=== PATIENT | female | born 1945 | race Caucasian/White ===

== ENCOUNTER 2020-07-09 17:44 | Inpatient (IN) | payer MEDICARE, MEDICAID ==
[~2020-07-09] VITALS: Ht 157.5 cm; Wt 72.1 kg
[~2020-07-09 17:44] MED LIST: ALBU18HF2 INH; ASPI-1169 PO; CLON2TAB PO; FLUR30CA13 PO; FLUT1DIS3 INH; HYDR-3980 PO; PHEN473S12 PO; TIOT18CA3 INH
--- NOTE | 2020-07-09 17:50 | NUR ---
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 ALSO, C/O HEAD AND CHRONIC BACK PAIN. RATES PAIN 8/10. IN ROOM AIR AND DENIES SOB. RESPIRATION REGULAR AND UNLABROED. ATTACHED THE PATIENT TO THE MONITOR. WILL CONTINUE TO MONITOR THE PATIENT.
[2020-07-09] MEDS ORDERED: CLONIDINE HCL 0.1 MG TABLET PO ONE (18:30)
[2020-07-09] MEDS ORDERED: IV NS 0.9% 1,000 ML BAG IV ONE (18:30)
[2020-07-09] MEDS ORDERED: KETOROLAC TROMETHAMINE INJ 30 MG/ML VIAL IV ONE (18:30)
[2020-07-09 18:37] LABS: BASOPHILS # (AUTO) 0.1 /CMM (0.0-0.2); BASOPHILS % (AUTO) 0.8 % (0.0-2.0); BILIRUBIN,URINE Negative (NEGATIVE); COLOR,URINE YELLOW (YELLOW); HEMATOCRIT 43 % (33-45); HEMOGLOBIN 14.6 g/dL (11.5-14.8); LEUKOCYTE ESTERASE ,URINE Negative (NEGATIVE); LYMPHOCYTES % (AUTO) 24.2 % (20.0-44.0); MEAN CORPUSCULAR HGB CONC 34 g/dl (31.0-36.0); MEAN CORPUSCULAR VOLUME 88 fL (82-100); MONOCYTES # (AUTO) 0.5 /CMM (0.1-1.30); MONOCYTES % (AUTO) 5.7 % (2.0-12.0); NEUTROPHILS # (AUTO) 5.6 /CMM (1.8-8.9); NEUTROPHILS % (AUTO) 67.3 % (43.0-81.0); NITRITE, URINE Negative (NEGATIVE); PLATELET COUNT (AUTO) 255 /CMM (150-450); PROTEIN,URINE 30 mg/dl (NEGATIVE); UGLUCOSE Negative (NEGATIVE); UROBILINOGEN,URINE 0.2 EU/dL (0.2); WHITE BLOOD COUNT (AUTO) 8.3 K/uL (4.3-11.0)
[2020-07-09] MEDS ORDERED: CLONIDINE HCL 0.1 MG TABLET ONE (18:39)
[2020-07-09] MEDS ORDERED: KETOROLAC TROMETHAMINE 15 MG/ML VIAL ONE (18:39)
[2020-07-09 18:46] LABS: BACTERIA,URINE Rare /HPF (None Seen); SQUAMOUS EPITHELIAL CELL,UR 0-2 /HPF (None Seen); WBC,URINE 0-2 /HPF (0-3)
[2020-07-09 18:50] LABS: ALANINE AMINOTRANSFERASE 29 U/L (12-78); ALBUMIN 3.8 g/dL (3.4-5.0); ALKALINE PHOSPHATASE 78 U/L (46-116); ASPARTATE AMINOTRANSFERASE 21 U/L (15-37); BILIRUBIN,DIRECT 0.1 mg/dL (0.0-0.2); BILIRUBIN,TOTAL 0.4 mg/dL (0.2-1.0); CALCIUM, SERUM 9.7 mg/dL (8.5-10.1); CARBON DIOXIDE 27 mmol/L (21-32); CHLORIDE 102 mmol/L (98-107); CREATININE 0.9 mg/dL (0.6-1.3); GLUCOSE 133 mg/dL (74-106); LIPASE 49 U/L (73-393); POTASSIUM 3.9 mmol/L (3.5-5.1); SODIUM SERUM 142 mmol/L (136-145); TOTAL PROTEIN, SERUM 7.9 g/dL (6.4-8.2); UREA NITROGEN, BLOOD 21 mg/dL (7-18)
--- NOTE | 2020-07-09 18:51 | NUR ---
TAKEN TO CT
[2020-07-09] MEDS ORDERED: ONDANSETRON HCL/PF 4 MG/2 ML VIAL IV ONE (20:00)
[2020-07-09] MEDS ORDERED: ENALAPRILAT INJ (1.25 MG/ML) 1.25 MG/ML VIAL IV PRN (20:00)
[2020-07-09] MEDS ORDERED: ONDANSETRON HCL/PF 4 MG/2 ML VIAL ONE (20:14)
[2020-07-09] MEDS ORDERED: ENALAPRILAT INJ (1.25 MG/ML) 1.25 MG/ML VIAL IV ONE (20:15)
--- NOTE | 2020-07-09 20:15 | NUR ---
pt placed on 1L o2 for comfort
--- NOTE | 2020-07-09 20:56 | NUR ---
DR. COUCH SPEAKING WITH DR. QUINTEROS
[2020-07-09] MEDS ORDERED: ACETAMINOPHEN 325 MG TABLET PO PRN (21:30)
[2020-07-09] MEDS ORDERED: MAGNESIUM HYDROXIDE 30 ML UDC PO PRN (21:30)
[2020-07-09] MEDS ORDERED: Z GUARD REMEDY 2 OZ OINT TP PRN (21:30)
[2020-07-09] MEDS ORDERED: CLONIDINE HCL 0.1 MG TABLET PO PRN (21:30)
[2020-07-09] MEDS ORDERED: hydrALAZINE HCL IV 20 MG VIAL IV PRN (21:30)
[2020-07-09] MEDS ORDERED: ZOLPIDEM TARTRATE 5 MG TABLET PO PRN (21:30)
--- NOTE | 2020-07-09 21:47 | NUR ---
BED ASSIGNMENT 327-1
--- NOTE | 2020-07-09 21:55 | NUR ---
GAVE REPORT TO AYO AQUINO FOR [facility]
[2020-07-09] MEDS: ENOXAPARIN SODIUM 40 MG/0.4 ML DISP.SYRIN SQ SCH ×2 (22:12→23:43)
[2020-07-09] MEDS ORDERED: METO25TA6 PO (23:06)
[2020-07-09] MEDS ORDERED: LOSA50TA39 PO (23:06)
[2020-07-09] MEDS ORDERED: ICOS1CAP2 PO (23:06)
--- NOTE | 2020-07-09 23:13 | NUR ---
MS/TELE/RN RECEIVED PATIENT FROM [facility] BY OG AT AROUND 2210. PATIENT WAS AWAKE, ALERT, ORIENTED, COMFORTABLE, NO C/O PAIN, NO DISTRESS NOTED, ADMISSION DONE PER PROTOCOL, PHYSICAL ASSESSMENT DONE, PLAN OF CARE DISCUSSED, VERBALIZED UNDERSTANDING AND AGREEMENT TO THE PLAN OF CARE. HOME MEDS DOSES AND FREQUENCIES OBTAINED AND ENTERED IN THE COMPUTER. FALL PRECAUTIONS PER PROTOCOL IMPLEMENTED, TAUGHT THE USE OF CALL LIGHT AND PLACED IT AT BEDSIDE WITHIN REACH. WILL MONITOR.
[2020-07-09] MEDS: HYDROCODONE/APAP 5/325MG TABLET PO PRN (23:42)
[2020-07-10] VITALS: BP 145/93
[2020-07-10] MEDS: MAG HYDROX/AL HYDROX/SIMETH 30 ML UDC PO PRN ×2 (00:42→06:24)
--- NOTE | 2020-07-10 00:56 | NUR ---
MS/TELE/RN C/O STOMACH PAIN/BURNING, MAALOX PO WAS GIVEN ORDERED, WILL MONITOR.
[2020-07-10] MEDS ORDERED: ALBUTEROL FS 2.5 MG/3 ML VIAL.NEB NEB PRN (01:30)
--- NOTE | 2020-07-10 02:04 | NUR ---
MS/TELE/RN PATIENT IS SLEEPING AT THIS TIME, APPEAR COMFORTABLE, NO SIGNS OF DISTRESS NOTED, CALL LIGHT IN REACH, WILL CONTINUE TO MONITOR.
[2020-07-10] MEDS: HYDROCODONE/APAP 5/325MG TABLET PO PRN ×3 (04:17→21:16)
[2020-07-10 04:54] VITALS: BP 143/66
--- NOTE | 2020-07-10 06:06 | NUR ---
MS/TELE/RN PATIENT APPEAR SLEEPING AT THIS TIME, APPEAR COMFORTABLE, NO SIGNS OF DISTRESS NOTED, CALL LIGHT IN REACH, ALL NEEDS ATTENDED AT THIS TIME, WILL CONTINUE TO MONITOR.
--- NOTE | 2020-07-10 06:36 | NUR ---
MS/TELE/RN PATIENT C/O HEARTBURN, MAALOX PO WAS GIVEN ORDERED. WILL CONTINUE TO MONITOR.
[2020-07-10 06:46] LABS: BASOPHILS % (AUTO) 0.7 % (0.0-2.0); EOSINOPHILS % (AUTO) 2.4 % (0.0-6.0); HEMATOCRIT 37 % (33-45); HEMOGLOBIN 12.3 g/dL (11.5-14.8); LYMPHOCYTES # (AUTO) 2.2 /CMM (0.8-4.8); LYMPHOCYTES % (AUTO) 33.6 % (20.0-44.0); MEAN CORPUSCULAR HGB CONC 34 g/dl (31.0-36.0); MEAN CORPUSCULAR VOLUME 89 fL (82-100); MONOCYTES # (AUTO) 0.5 /CMM (0.1-1.30); MONOCYTES % (AUTO) 8.3 % (2.0-12.0); NEUTROPHILS # (AUTO) 3.6 /CMM (1.8-8.9); PLATELET COUNT (AUTO) 231 /CMM (150-450); RED BLOOD CELL COUNT(AUTO) 4.11 MIL/uL (4.0-5.2); WHITE BLOOD COUNT (AUTO) 6.5 K/uL (4.3-11.0)
[2020-07-10 06:59] LABS: CALCIUM, SERUM 8.8 mg/dL (8.5-10.1); CREATININE 0.9 mg/dL (0.6-1.3); MAGNESIUM 2.1 mg/dL (1.8-2.4); PHOSPHORUS 4.5 mg/dL (2.5-4.9); POTASSIUM 4.1 mmol/L (3.5-5.1)
[2020-07-10 07:55] LABS: THYROID STIMULATING HORMONE 0.871 uIU/mL (0.358-3.74)
[2020-07-10 08:00] VITALS: BP 143/54
[2020-07-10] MEDS: ONDANSETRON HCL/PF 4 MG/2 ML VIAL IVP PRN (08:59)
[2020-07-10] MEDS ORDERED: METOPROLOL TARTRATE 25 MG TABLET PO SCH (09:00)
[2020-07-10] MEDS: HYDROCODONE/APAP 10/325MG TABLET PO SCH ×3 (09:00→17:00)
[2020-07-10] MEDS: FLUTICASONE/VILANTEROL 1 EACH BLST.W.DEV IH SCH ×2 (09:00→11:07)
[2020-07-10] MEDS ORDERED: PROMETHAZINE HCL SYRUP 6.25 MG/5 ML UDC PO PRN ×2 (09:00)
--- NOTE | 2020-07-10 09:00 | NUR ---
DATA ADMINISTRATOR NOTES Patient alert and oriented x3. No acute distress noted. Denies pain. c/o nausea with relief from PRN IV Zofran. Assisted patient to the bathroom. Urine yellow and clear with no foul odor.
[2020-07-10] MEDS: PANTOPRAZOLE 40 MG TABLET.DR PO SCH (09:14)
[2020-07-10] MEDS: VALSARTAN 80 MG TABLET PO SCH (09:15)
[2020-07-10] MEDS: METOPROLOL TARTRATE 25 MG TABLET PO SCH ×2 (09:16→21:15)
[2020-07-10] MEDS: ASPIRIN 81 MG TAB.CHEW PO SCH (09:17)
[2020-07-10] MEDS: clonazePAM 1 MG TABLET PO PRN (12:43)
[2020-07-10] MEDS: IPRATROPIUM NEB FS 0.5 MG/2.5 ML AMPUL.NEB NEB SCH ×3 (13:31→20:05)
[2020-07-10 16:00] VITALS: BP 147/80
[2020-07-10 16:46] VITALS: BP_SYST 124; BP_SYST 142; BP_SYST 146; BP_DIAS 70; BP_DIAS 71; BP_DIAS 75
--- NOTE | 2020-07-10 18:30 | NUR ---
MS/TELE/RN NOTES Patient A&Ox4. VSS. Cooperative with using call light when walking to bathroom related to mild dizziness. C/o lower back pain with relief from PRN [place]. All other needs met by staff.
[2020-07-10 20:00] VITALS: BP 148/65
--- NOTE | 2020-07-10 20:00 | NUR ---
HEALTH SCREENER OPENING NOTE RECEIVED PT AWAKE IN BED. A/O X4. PT NOTED ON 2L O2 VIA NC. NO SOB NOTED. NO S/S OF RESPIRATORY DISTRESS. PT IS ON EXTERNAL TELE SHOP MECHANIC READING SR 72. NO CO/O PAIN AT THIS TIME. IV ACCESS IN RAC #18G S/L. IV IS INTACT, PATENT, AND FLUSHING WELL. SAFETY MEASURES MAINTAINED AT ALL TIMES. BED IN LOWEST LOCKED POSITION. SIDE RAILS UP X2. CALL LIGHT AND TABLE WITHIN REACH. WILL CONTINUE WITH PLAN OF CARE.
[2020-07-10] MEDS: ENOXAPARIN SODIUM 40 MG/0.4 ML DISP.SYRIN SQ SCH (21:00)
--- NOTE | 2020-07-10 21:16 | NUR ---
MANAGER MEDIA PAIN PT C/O ACHING LEFT HIP PAIN, RATED 7/10. VS BP 148/65, HR 60, RR 17, TEMP 98.6, SPO2 97%. PER PT REQUEST, ADMINISTERED NORCO 3-325 MG PO Q4H AT THIS TIME. WILL CONTINUE TO MONITOR.
[2020-07-10] MEDS ORDERED: LOSARTAN POTASSIUM 50 MG TABLET PO SCH (22:00)
[2020-07-10] MEDS ORDERED: FLURAZEPAM HCL 30 MG PO SCH (22:00)
[2020-07-11] VITALS: BP 147/66
[2020-07-11] MEDS: IPRATROPIUM NEB FS 0.5 MG/2.5 ML AMPUL.NEB NEB SCH ×4 (02:05→21:30)
[2020-07-11 04:00] VITALS: BP_SYST 159; BP_SYST 162; BP_SYST 186; BP_DIAS 71; BP_DIAS 73; BP_DIAS 77
[2020-07-11] MEDS: HYDROCODONE/APAP 5/325MG TABLET PO PRN ×2 (05:34→11:14)
--- NOTE | 2020-07-11 05:34 | NUR ---
CLEARANCE COORDINATOR PAIN PT C/O SHARP PAIN IN LEFT HIP, RATED 7/10. VS BP 159/73, HR 71, RR 17, TEMP 98.2, SPO2 94%. PER PT REQUEST, ADMINISTERED NORCO 3-325 MG PO Q4H PRN AT THIS TIME. WILL CONTINUE TO MONITOR.
[2020-07-11 06:22] LABS: BASOPHILS # (AUTO) 0.1 /CMM (0.0-0.2); BASOPHILS % (AUTO) 0.7 % (0.0-2.0); HEMATOCRIT 36 % (33-45); HEMOGLOBIN 12.3 g/dL (11.5-14.8); LYMPHOCYTES # (AUTO) 2.2 /CMM (0.8-4.8); LYMPHOCYTES % (AUTO) 30.1 % (20.0-44.0); MEAN CORPUSCULAR HGB CONC 34 g/dl (31.0-36.0); MEAN CORPUSCULAR VOLUME 89 fL (82-100); MONOCYTES # (AUTO) 0.5 /CMM (0.1-1.30); MONOCYTES % (AUTO) 6.9 % (2.0-12.0); NEUTROPHILS # (AUTO) 4.4 /CMM (1.8-8.9); NEUTROPHILS % (AUTO) 59.3 % (43.0-81.0); PLATELET COUNT (AUTO) 220 /CMM (150-450); RED BLOOD CELL COUNT(AUTO) 4.09 MIL/uL (4.0-5.2); WHITE BLOOD COUNT (AUTO) 7.3 K/uL (4.3-11.0)
--- NOTE | 2020-07-11 06:25 | NUR ---
STRATEGIC PLANNING ANALYST CLOSING NOTE PT IS AWAKE IN BED AT THIS TIME. A/O X4. PT IS AMBULATORY WITH STAND-BY ASSIST. PT NOTED ON 2L O2 VIA NC. NO SOB NOTED. NO S/S OF RESPIRATORY DISTRESS. EXTERNAL JET MECHANIC READS SR 74. IV ACCESS IS INTACT AND PATENT. PAIN MANAGEMENT ADMINISTERED PER ORDER. ALL NEEDS HAVE BEEN MET. BED LOWEST LOCKED POSITION, HOB ELEVATED, SIDE RAILS UP X2. CALL LIGHT AND TABLE WITHIN REACH. WILL ENDORSE TO ONCOMING NURSE FOR CONTINUITY OF CARE.
[2020-07-11 06:39] LABS: CALCIUM, SERUM 8.4 mg/dL (8.5-10.1); CREATININE 0.9 mg/dL (0.6-1.3); MAGNESIUM 2.1 mg/dL (1.8-2.4); PHOSPHORUS 3.5 mg/dL (2.5-4.9); POTASSIUM 3.9 mmol/L (3.5-5.1)
--- NOTE | 2020-07-11 07:15 | NUR ---
MS RN NOTES PATIENT IN BED ALERT ORIENTED X 4. NO ACUTE DISTRESS NOTED. BREATHING UNLABORED. NO SOB NOTED. IV ACCESS PATENT AND INTACT. SAFETY MEASURES IN PLACE. CALL LIGHT WITHIN REACH. WILL CONTINUE TO MONITOR ACCORDINGLY
[2020-07-11 08:00] VITALS: BP 175/75
[2020-07-11] MEDS: PANTOPRAZOLE 40 MG TABLET.DR PO SCH (08:23)
[2020-07-11] MEDS: FLUTICASONE/VILANTEROL 1 EACH BLST.W.DEV IH SCH (09:00)
[2020-07-11] MEDS: HYDROCODONE/APAP 10/325MG TABLET PO SCH ×3 (09:00→17:25)
[2020-07-11] MEDS: ASPIRIN 81 MG TAB.CHEW PO SCH (09:16)
[2020-07-11] MEDS: VALSARTAN 80 MG TABLET PO SCH (09:20)
[2020-07-11] MEDS: METOPROLOL TARTRATE 25 MG TABLET PO SCH ×2 (09:22→21:12)
[2020-07-11] MEDS: AMLODIPINE BESYLATE 10 MG TABLET PO SCH (09:22)
[2020-07-11] MEDS: clonazePAM 1 MG TABLET PO PRN (11:14)
[2020-07-11 16:00] VITALS: BP 120/72
--- NOTE | 2020-07-11 19:00 | NUR ---
MS RN NOTES PATIENT IN BED ALERT ORIENTED X 4. NO ACUTE DISTRESS NOTED. BREATHING UNLABORED. NO SOB NOTED. IV ACCESS PATENT AND INTACT. NEEDS ATTENDED AND ANTICIPATED. SAFETY MEASURES IN PLACE. CALL LIGHT WITHIN REACH. WILL ENDORSE TO NIGHT NURSE FOR CONTINUITY OF CARE.
--- NOTE | 2020-07-11 19:15 | NUR ---
MS AYO NOTES PATIENT IN BED ALERT ORIENTED X 4. NO ACUTE DISTRESS NOTED. BREATHING UNLABORED. NO SOB NOTED. IV ACCESS PATENT AND INTACT. SAFETY MEASURES IN PLACE. CALL LIGHT WITHIN REACH. WILL CONTINUE TO MONITOR ACCORDINGLY Addendum: 07/11/20 at 2001 by KYLE DEAN RN DISREGARD ABOVE NOTES-ERROR
[2020-07-11] MEDS: ONDANSETRON HCL/PF 4 MG/2 ML VIAL IVP PRN (19:57)
--- NOTE | 2020-07-11 19:57 | NUR ---
PT C/O NAUSEA. NO EMESIS NOTED. PER PT REQUEST, ADMINISTERED ZOFRAN 4 MG IVP Q6H PRN AT THIS TIME. WILL CONTINUE TO MONITOR.
[2020-07-11 20:00] VITALS: BP 178/67
--- NOTE | 2020-07-11 20:00 | NUR ---
MS RN OPENING NOTE RECEIVED PT AWAKE IN BED. A/O X4. PT NOTED ON 2L O2 VIA NC. NO SOB NOTED. NO S/S OF RESPIRATORY DISTRESS. NO C/O PAIN AT THIS TIME. IV ACCESS IN RAC #18G HL. IV IS INTACT, PATENT, AND FLUSHING WELL. SAFETY MEASURES MAINTAINED AT ALL TIMES. BED IN LOWEST LOCKED POSITION. SIDE RAILS UP X2. CALL LIGHT AND TABLE WITHIN REACH. WILL CONTINUE WITH PLAN OF CARE.
[2020-07-11] MEDS: ENOXAPARIN SODIUM 40 MG/0.4 ML DISP.SYRIN SQ SCH (21:00)
[2020-07-12] MEDS: HYDROCODONE/APAP 5/325MG TABLET PO PRN ×2 (01:05→22:12)
--- NOTE | 2020-07-12 01:05 | NUR ---
MS RN PAIN PT C/O SHARP PAIN IN LEFT HIP, RATED 7/10 ON PAIN SCALE. VS STABLE. PER PT REQUEST, ADMINISTERED NORCO 5-325 MG 1 TAB PO Q4H PRN AT THIS TIME. WILL CONTINUE TO MONITOR.
[2020-07-12] MEDS: clonazePAM 1 MG TABLET PO PRN (02:08)
[2020-07-12] MEDS: IPRATROPIUM NEB FS 0.5 MG/2.5 ML AMPUL.NEB NEB SCH ×4 (03:16→20:16)
[2020-07-12 06:00] VITALS: BP_SYST 161; BP_SYST 165; BP_SYST 172; BP_DIAS 67; BP_DIAS 74; BP_DIAS 90
--- NOTE | 2020-07-12 06:59 | NUR ---
MS RN CLOSING NOTE PT IS AWAKE IN BED AT THIS TIME. A/O X4. PT IS AMBULATORY WITH ASSIST. PT NOTED ON 2L O2 VIA NC. NO SOB NOTED. NO S/S OF RESPIRATORY DISTRESS. IV ACCESS IS INTACT, PATENT, AND FLUSHING WELL. ALL NEEDS HAVE BEEN MET. PAIN MANAGEMENT ADMINISTERED PER ORDER. SAFETY PRECAUTIONS MAINTAINED AT ALL TIMES. BED IN LOWEST LOCKED POSITION, HOB ELEVATED, SIDE RAILS UP X2. CALL LIGHT AND TABLE WITHIN REACH. WILL ENDORSE TO ONCOMING NURSE FOR CONTINUITY OF CARE.
[2020-07-12 07:21] LABS: BASOPHILS # (AUTO) 0.1 /CMM (0.0-0.2); BASOPHILS % (AUTO) 0.7 % (0.0-2.0); EOSINOPHILS % (AUTO) 2.9 % (0.0-6.0); HEMATOCRIT 39 % (33-45); HEMOGLOBIN 13.2 g/dL (11.5-14.8); LYMPHOCYTES # (AUTO) 3.2 /CMM (0.8-4.8); LYMPHOCYTES % (AUTO) 37.3 % (20.0-44.0); MEAN CORPUSCULAR HGB CONC 34 g/dl (31.0-36.0); MEAN CORPUSCULAR VOLUME 88 fL (82-100); MONOCYTES # (AUTO) 0.7 /CMM (0.1-1.30); MONOCYTES % (AUTO) 8.3 % (2.0-12.0); NEUTROPHILS # (AUTO) 4.3 /CMM (1.8-8.9); NEUTROPHILS % (AUTO) 50.8 % (43.0-81.0); PLATELET COUNT (AUTO) 243 /CMM (150-450); RED BLOOD CELL COUNT(AUTO) 4.45 MIL/uL (4.0-5.2); WHITE BLOOD COUNT (AUTO) 8.6 K/uL (4.3-11.0)
--- NOTE | 2020-07-12 07:45 | NUR ---
MS RN OPENING NOTES RESIDENT ALERT AND ORIENTED ON BED WITH NO SIGNS OF RESPIRATORY DISTRESS. PATIENT AMBULATES WITH ASSIST. MONITORED BLOOD PRESSURE, NO SIGNS AND SYMPTOMS OF HYPO/ HYPERTENSION NOTED. MAINTAINED ON MODERATE TO HIGH BACK REST. ON MODERATE TO HIGH BACK REST. COMFORT MEASURES PROVIDED. ENCOURAGED TO DO DEEP BREATHING EXERCISES. CALL LIGHT WITHIN REACH AT ALL TIMES. PROVIDED WITH CALM AND QUIET ENVIRONMENT. NOT IN DISTRESS.
[2020-07-12 08:00] VITALS: BP 163/77
[2020-07-12] MEDS: PANTOPRAZOLE 40 MG TABLET.DR PO SCH (08:08)
[2020-07-12 08:18] LABS: CALCIUM, SERUM 8.9 mg/dL (8.5-10.1); CREATININE 0.8 mg/dL (0.6-1.3); MAGNESIUM 2.3 mg/dL (1.8-2.4); PHOSPHORUS 4.3 mg/dL (2.5-4.9); POTASSIUM 4.1 mmol/L (3.5-5.1)
[2020-07-12] MEDS: ASPIRIN 81 MG TAB.CHEW PO SCH (08:33)
[2020-07-12] MEDS: VALSARTAN 80 MG TABLET PO SCH (08:34)
[2020-07-12] MEDS: METOPROLOL TARTRATE 25 MG TABLET PO SCH ×2 (08:35→20:58)
[2020-07-12] MEDS: AMLODIPINE BESYLATE 10 MG TABLET PO SCH (08:36)
[2020-07-12] MEDS: HYDROCODONE/APAP 10/325MG TABLET PO SCH ×3 (08:36→17:36)
[2020-07-12] MEDS: FLUTICASONE/VILANTEROL 1 EACH BLST.W.DEV IH SCH (09:00)
--- NOTE | 2020-07-12 09:04 | NUR ---
MS RN NOTE PATIENT REFUSED MEDICATION, PER PATIENT, SHE DOESNT WANT THE MEDICATION BECAUSE IT MAKES HER SWELL AND IT DOESN'T WORK GOOD ON HER ANYWAY. HEALTH TEACHING DONE REGARDING REPERCUSSION OF ACTION AND INDICATION AND EFFECT OF THE MEDICATION. VERBALIZED UNDERSTANDING AND APPRECIATION. NOT IN DISTRESS.
[2020-07-12] MEDS: ISOSORBIDE DINITRATE (20MG) 20 MG TABLET PO SCH ×2 (10:55→17:00)
[2020-07-12] MEDS: ONDANSETRON HCL/PF 4 MG/2 ML VIAL IVP PRN ×2 (11:28→12:19)
--- NOTE | 2020-07-12 19:20 | NUR ---
MS RN CLOSING NOTE PATIENT IS ON BED ALERT AND ORIENTED X 4. PATIENT WITH OXYGEN SATURATION OF 97% ON OXYGEN AT 2LPM WITH NO SIGNS OF DISTRESS. WITH IV PERIPHERAL ACCESS ON THE RIGHT AC GAUGE#18 COVERED WITH TEGADERM. IV PATENT AND INTACT. PATIENT OCCASIONALLY COMPLAINS OF PAIN ON THE BACK MANAGED BY HER ROUTINE NORCO. NO SIGNS AND SYMPTOMS OF HYPO/HYPERTENSION NOTED. PATIENT AMBULATES, WITH STEADY GAIT. NEEDS ATTENDED. BED PLACED IN THE LOWEST POSITION AND LOCKED. ENCOURAGED TO DO DEEP BREATHING EXERCISES. CALL LIGHT WITHIN REACH AT ALL TIMES. NOT IN DISTRESS.
[2020-07-12 20:00] VITALS: BP 142/69
--- NOTE | 2020-07-12 20:00 | NUR ---
MS RN OPENING NOTE RECEIVED PT AWAKE IN BED. A/O X4. PT IS AMBULATORY WITH ASSIST. PT NOTED ON 2L O2 VIA NC, SATURATING AT 96%. NO SOB NOTED. NO S/S OF RESPIRATORY DISTRESS. NO C/O PAIN AT THIS TIME. IV ACCESS IN RAC #18G HL, INTACT, PATENT, AND FLUSHING WELL. SAFETY MEASURES MAINTAINED AT ALL TIMES. BED IN LOWEST LOCKED POSITION, HOB ELEVATED, SIDE RAILS UP X2. CALL LIGHT AND TABLE WITHIN REACH. WILL CONTINUE WITH PLAN OF CARE.
[2020-07-12] MEDS: ENOXAPARIN SODIUM 40 MG/0.4 ML DISP.SYRIN SQ SCH (20:59)
[2020-07-12] MEDS: MAG HYDROX/AL HYDROX/SIMETH 30 ML UDC PO PRN (22:11)
--- NOTE | 2020-07-12 22:12 | NUR ---
MS RN PAIN PT C/O ACHING PAIN IN LEFT FOOT, RATED 7/10 ON PAIN SCALE. VS BP 142/69, HR 67, RR 20, T 98.1, SPO2 96%. PER PT REQUEST, ADMINISTERED NORCO 5-325 MG PO Q4H PRN AT THIS TIME. WILL CONTINUE TO MONITOR.
[2020-07-13] MEDS: IPRATROPIUM NEB FS 0.5 MG/2.5 ML AMPUL.NEB NEB SCH ×3 (01:36→13:30)
[2020-07-13 05:55] VITALS: BP_SYST 160; BP_SYST 176; BP_SYST 178; BP_DIAS 69; BP_DIAS 73; BP_DIAS 82
[2020-07-13 06:59] LABS: BASOPHILS # (AUTO) 0.1 /CMM (0.0-0.2); BASOPHILS % (AUTO) 0.7 % (0.0-2.0); EOSINOPHILS % (AUTO) 3.4 % (0.0-6.0); HEMATOCRIT 39 % (33-45); HEMOGLOBIN 13.2 g/dL (11.5-14.8); LYMPHOCYTES # (AUTO) 2.2 /CMM (0.8-4.8); LYMPHOCYTES % (AUTO) 26.8 % (20.0-44.0); MEAN CORPUSCULAR HGB CONC 34 g/dl (31.0-36.0); MEAN CORPUSCULAR VOLUME 88 fL (82-100); MONOCYTES # (AUTO) 0.6 /CMM (0.1-1.30); MONOCYTES % (AUTO) 7.4 % (2.0-12.0); NEUTROPHILS # (AUTO) 5.1 /CMM (1.8-8.9); NEUTROPHILS % (AUTO) 61.7 % (43.0-81.0); PLATELET COUNT (AUTO) 235 /CMM (150-450); RED BLOOD CELL COUNT(AUTO) 4.43 MIL/uL (4.0-5.2); WHITE BLOOD COUNT (AUTO) 8.3 K/uL (4.3-11.0)
[2020-07-13 07:20] LABS: CALCIUM, SERUM 8.7 mg/dL (8.5-10.1); CREATININE 0.8 mg/dL (0.6-1.3); MAGNESIUM 2.2 mg/dL (1.8-2.4); PHOSPHORUS 3.6 mg/dL (2.5-4.9); POTASSIUM 4.7 mmol/L (3.5-5.1)
--- NOTE | 2020-07-13 07:50 | NUR ---
MS RN OPENING NOTES PATIENT IN BED, AWAKE, ALERT, ORIENTED X4, VERBALLY RESPONSIVE. ON 2L O2 VIA NASAL CANNULA, TOLERATED WELL, NO SOB. NO COMPLAINT OF PAIN OR DISCOMFORT AT THIS TIME. RIGHT AC NOTED, INTACT, NO S/S OF INFILTRATION. ALL NEEDS MET ATTENDED PROMPTLY. CALL LIGHT WITHIN EASY REACH.
[2020-07-13 08:00] VITALS: BP 162/78
[2020-07-13] MEDS: PANTOPRAZOLE 40 MG TABLET.DR PO SCH (08:14)
[2020-07-13] MEDS: HYDROCODONE/APAP 10/325MG TABLET PO SCH ×3 (08:24→17:00)
[2020-07-13] MEDS ORDERED: MINOXIDIL (2.5MG) 2.5 MG TABLET PO SCH (09:00)
[2020-07-13] MEDS: FLUTICASONE/VILANTEROL 1 EACH BLST.W.DEV IH SCH (09:00)
[2020-07-13] MEDS: ASPIRIN 81 MG TAB.CHEW PO SCH (09:13)
[2020-07-13] MEDS: METOPROLOL TARTRATE 25 MG TABLET PO SCH (09:14)
[2020-07-13] MEDS: AMLODIPINE BESYLATE 10 MG TABLET PO SCH (09:15)
[2020-07-13] MEDS: VALSARTAN 80 MG TABLET PO SCH (09:15)
[2020-07-13] MEDS: ISOSORBIDE DINITRATE (20MG) 20 MG TABLET PO SCH ×2 (09:16→17:21)
[2020-07-13] MEDS: clonazePAM 1 MG TABLET PO PRN (15:50)
[2020-07-13 16:00] VITALS: BP 146/59
--- NOTE | 2020-07-13 17:11 | NUR ---
MS ROLLINS STAT JUANAY DONE Addendum: 07/13/20 at 1857 by ANDREA WORRELL RN WRONG DOCUMENTATION
[2020-07-13 17:21] VITALS: BP 148/72
--- NOTE | 2020-07-13 18:57 | NUR ---
MS RN CLOSING NOTES PATIENT IN BED, A/O X4, ABLE TO MAKE NEEDS KNOWN, DENIES PAIN OR DISCOMFORT AT THIS TIME. NO S/S OF RESPIRATORY DISTRESS. ALL DUE MEDS ARE GIVEN ORDERED. KEPT CLEAN AND DRY. ALL NEEDS ATTENDED PROMPTLY. CALL LIGHT WITHIN EASY REACH. WILL ENDORSE TO GEOGRAPHIC ANALYST PLAN OF CARE.
[2020-07-13] MEDS: HYDROCODONE/APAP 5/325MG TABLET PO PRN (19:26)
--- NOTE | 2020-07-13 20:24 | NUR ---
HEAD MECHANIC NOTES REPORT GIVEN TO AYO ELAM OF [facility] VIA TELEPHONE. PICKED UP BY EMT @2019. PATIENT MEDICALLY STABLE. A/OX4. BP: 148/72. P-84. NO S/S OF DISTRESS. NORCO GIVEN @1900 FOR 7/10 PAIN SCALE. IV LINE TAKEN OUT. ID BAND TAKEN OUT. BELONGINGS ACCOUNTED FOR. PAPER WORKS GIVEN TO PATIENT, WELL ADDITIONAL EDUCATION. EMT GIVEN THE FACE SHEET. GAVE ARMOND SCRUGGS REPORT AT BED SIDE. PATIENT ROLLED OUT VIA [employer]NEY AT EXACTLY 2023.
== END 2020-07-13 20:25 | DRG 305 ==
LOC: ER 17:46 → TELE 21:55 → MED 07-11 11:07
PROVIDERS: ADMIT Student in an Organized Health Care Education/Training Program
DX: I16.0 Hypertensive urgency (principal); G90.8 Other disorders of autonomic nervous system; G89.4 Chronic pain syndrome; E78.5 Hyperlipidemia, unspecified; I10 Essential (primary) hypertension; J44.9 Chronic obstructive pulmonary disease, unspecified; K21.9 Gastro-esophageal reflux disease without esophagitis; M06.9 Rheumatoid arthritis, unspecified; Z86.73 Personal history of transient ischemic attack (TIA), and cerebral infarction without residual deficits; Z87.891 Personal history of nicotine dependence; N28.89 Other specified disorders of kidney and ureter; Z20.822 Contact with and (suspected) exposure to COVID-19; F99 Mental disorder, not otherwise specified
CPT/HCPCS: 36415; 70450-TC; 71045-TC; 80048-TC; 80061-TC; 80076-TC; 81001; 83690-TC; 83735-TC; 84100-TC; 84443-TC; 84484-TC; 85025-TC; 87081-TC; 87086-TC; 93307-TC; 94799-TC; C9803; G0378; J1650; J1885; J2405; J3490; J7030

== ENCOUNTER 2021-11-18 10:00 | Day surgery (SDC) | payer MEDICARE, OTHER ==
[~2021-11-18] VITALS: Ht 157.5 cm; Wt 63.5 kg
[~2021-11-18 10:00] MED LIST changes: +ICOS1CAP2 PO; +LOSA50TA39 PO; +METO25TA6 PO
[2021-11-18] MEDS ORDERED: NITROGLYCERIN 0.4 MG/TAB BOTTLE ONE (10:10)
[2021-11-18] MEDS ORDERED: METOPROLOL TARTRATE INJ 5 MG/5 ML AMPUL ONE (10:10)
[2021-11-18] MEDS ORDERED: IOHEXOL-350 100 ML VIAL IV ONE (10:10)
[2021-11-18] MEDS ORDERED: IV NS 0.9% 250 ML IV ONE (10:11)
[2021-11-18] MEDS ORDERED: CT SWABBABLE VALVE TRANS SET 1 EA INFUS.SET MC ONE (10:11)
[2021-11-18] MEDS: METOPROLOL TARTRATE INJ 5 MG/5 ML AMPUL IVP PRN ×3 (10:17→10:27)
[2021-11-18 10:30] VITALS: BP 141/80
[2021-11-18] MEDS ORDERED: NITROGLYCERIN 0.4 MG/TAB BOTTLE SL ONE (10:30)
--- NOTE | 2021-11-18 10:36 | NUR ---
Report given to Kym ([facility] [address]) for [facility] transport back to [facility]. Patient remains in stable condition at this time.
== END 2021-11-18 10:49 | disposition short-term general hospital (02) ==
LOC: CT 10:00
PROVIDERS: ATTEND Internal Medicine
DX: J43.2 Centrilobular emphysema (principal); K76.89 Other specified diseases of liver; I51.7 Cardiomegaly; R07.9 Chest pain, unspecified
CPT/HCPCS: 75574; J3490; J7050; Q9967

== ENCOUNTER 2022-04-11 16:58 | Inpatient (IN) | payer MEDICARE, OTHER ==
[~2022-04-11] VITALS: Ht 157.5 cm; Wt 68.0 kg
[2022-04-11] MEDS ORDERED: ONDANSETRON HCL/PF 4 MG/2 ML VIAL IVP ONE (17:30)
[2022-04-11] MEDS ORDERED: IV NS 0.9% 1,000 ML BAG IV ONE (17:30)
[2022-04-11] MEDS ORDERED: HYDROMORPHONE INJ 2 MG/ML DISP.SYRIN IV ONE (17:30)
[2022-04-11] MEDS ORDERED: PANTOPRAZOLE 40 MG VIAL IV ONE (17:30)
[2022-04-11 18:07] LABS: BASOPHILS % (AUTO) 0.5 % (0.0-2.0); EOSINOPHILS % (AUTO) 1.4 % (0.0-6.0); HEMATOCRIT 44 % (33-45); HEMOGLOBIN 14.5 g/dL (11.5-14.8); LYMPHOCYTES # (AUTO) 2.4 K/uL (0.8-4.8); LYMPHOCYTES % (AUTO) 23.5 % (20.0-44.0); MEAN CORPUSCULAR HGB CONC 33 g/dl (31.0-36.0); MEAN CORPUSCULAR VOLUME 89 fL (82-100); MONOCYTES # (AUTO) 0.5 K/uL (0.1-1.30); MONOCYTES % (AUTO) 4.4 % (2.0-12.0); NEUTROPHILS # (AUTO) 7.3 K/uL (1.8-8.9); NEUTROPHILS % (AUTO) 70.2 % (43.0-81.0); PLATELET COUNT (AUTO) 271 K/uL (150-450); RED BLOOD CELL COUNT(AUTO) 4.91 MIL/uL (4.0-5.2); WHITE BLOOD COUNT (AUTO) 10.4 K/uL (4.3-11.0)
[2022-04-11 18:29] LABS: POTASSIUM 4.1 mmol/L (3.5-5.1)
[2022-04-11 18:42] LABS: BILIRUBIN,DIRECT 0.1 mg/dL (0.0-0.2); BILIRUBIN,TOTAL 0.4 mg/dL (0.2-1.0)
[2022-04-11] MEDS ORDERED: HYDROMORPHONE 1 MG/1 ML DISP.SYRIN IV ONE (20:00)
[2022-04-11] MEDS ORDERED: HYDROMORPHONE 1 MG/1 ML DISP.SYRIN ONE (20:17)
[2022-04-11 20:39] LABS: BILIRUBIN,URINE NEGATIVE (NEGATIVE); COLOR,URINE YELLOW (YELLOW); LEUKOCYTE ESTERASE ,URINE NEGATIVE (NEGATIVE); NITRITE, URINE NEGATIVE (NEGATIVE); PROTEIN,URINE NEGATIVE (NEGATIVE); UGLUCOSE NEGATIVE (NEGATIVE); UROBILINOGEN,URINE 0.2 EU/dL (0.2)
[2022-04-11 21:30] VITALS: BP 164/88
[2022-04-11] MEDS ORDERED: ACETAMINOPHEN 325 MG TABLET PO PRN (22:00)
[2022-04-11] MEDS ORDERED: MAGNESIUM HYDROXIDE 30 ML UDC PO PRN (22:00)
[2022-04-11] MEDS ORDERED: Z GUARD REMEDY 4 OZ OINT TP PRN (22:00)
[2022-04-11] MEDS ORDERED: MAG HYDROX/AL HYDROX/SIMETH 30 ML UDC PO PRN (22:00)
[2022-04-11] MEDS: IV NS 0.9% 1,000 ML IV SCH (22:20)
[2022-04-11] MEDS: ONDANSETRON HCL/PF 4 MG/2 ML VIAL IVP PRN (23:02)
[2022-04-12] MEDS: MORPHINE SULFATE INJ 4 MG/ML DISP.SYRIN IV PRN ×3 (00:02→17:14)
[2022-04-12] MEDS: ONDANSETRON HCL/PF 4 MG/2 ML VIAL IVP PRN ×4 (05:09→23:24)
[2022-04-12 05:52] LABS: BASOPHILS % (AUTO) 0.3 % (0.0-2.0); EOSINOPHILS % (AUTO) 0.2 % (0.0-6.0); HEMATOCRIT 44 % (33-45); HEMOGLOBIN 14.3 g/dL (11.5-14.8); LYMPHOCYTES # (AUTO) 1.8 K/uL (0.8-4.8); LYMPHOCYTES % (AUTO) 15.2 % (20.0-44.0); MEAN CORPUSCULAR HGB CONC 33 g/dl (31.0-36.0); MEAN CORPUSCULAR VOLUME 90 fL (82-100); MONOCYTES # (AUTO) 0.4 K/uL (0.1-1.30); MONOCYTES % (AUTO) 3.3 % (2.0-12.0); NEUTROPHILS # (AUTO) 9.8 K/uL (1.8-8.9); PLATELET COUNT (AUTO) 238 K/uL (150-450); RED BLOOD CELL COUNT(AUTO) 4.85 MIL/uL (4.0-5.2); WHITE BLOOD COUNT (AUTO) 12.2 K/uL (4.3-11.0)
[2022-04-12 06:31] LABS: CALCIUM, SERUM 9.3 mg/dL (8.5-10.1); CARBON DIOXIDE 30 mmol/L (21-32); CHLORIDE 102 mmol/L (98-107); CREATININE 0.8 mg/dL (0.6-1.3); GLUCOSE 152 mg/dL (74-106); MAGNESIUM 2.3 mg/dL (1.8-2.4); PHOSPHORUS 3.6 mg/dL (2.5-4.9); POTASSIUM 4.4 mmol/L (3.5-5.1); SODIUM SERUM 140 mmol/L (136-145); UREA NITROGEN, BLOOD 19 mg/dL (7-18)
[2022-04-12 08:00] VITALS: BP 160/79
[2022-04-12] MEDS: METOPROLOL TARTRATE 25 MG TABLET PO SCH ×2 (08:32→20:42)
[2022-04-12] MEDS: ASPIRIN 81 MG TAB.CHEW PO SCH (08:32)
[2022-04-12] MEDS ORDERED: HYDROMORPHONE 1 MG/1 ML DISP.SYRIN IV PRN ×2 (09:30)
[2022-04-12] MEDS: IV NS 0.9% 1,000 ML IV SCH (10:34)
[2022-04-12] MEDS ORDERED: DIATR MEGLU/DIATRIZOATE SODIUM 120 ML BOTTLE (GASTROGRAPHIN) ONE (14:10)
[2022-04-12 20:00] VITALS: BP 163/88
[2022-04-12] MEDS: LOSARTAN POTASSIUM 50 MG TABLET PO SCH (22:00)
[2022-04-12] MEDS: HYDROMORPHONE INJ 2 MG/ML DISP.SYRIN IV PRN (22:26)
[2022-04-13] MEDS: IV NS 0.9% 1,000 ML IV SCH ×2 (01:17→14:00)
[2022-04-13] MEDS: MORPHINE SULFATE INJ 4 MG/ML DISP.SYRIN IV PRN (03:10)
[2022-04-13] MEDS: ONDANSETRON HCL/PF 4 MG/2 ML VIAL IVP PRN ×4 (05:26→20:44)
[2022-04-13 06:18] LABS: BASOPHILS % (AUTO) 0.1 % (0.0-2.0); EOSINOPHILS % (AUTO) 0.1 % (0.0-6.0); HEMATOCRIT 48 % (33-45); HEMOGLOBIN 15.8 g/dL (11.5-14.8); LYMPHOCYTES % (AUTO) 11.5 % (20.0-44.0); MEAN CORPUSCULAR HGB CONC 33 g/dl (31.0-36.0); MEAN CORPUSCULAR VOLUME 90 fL (82-100); MONOCYTES # (AUTO) 0.8 K/uL (0.1-1.30); MONOCYTES % (AUTO) 4.5 % (2.0-12.0); NEUTROPHILS # (AUTO) 14.4 K/uL (1.8-8.9); NEUTROPHILS % (AUTO) 83.8 % (43.0-81.0); PLATELET COUNT (AUTO) 301 K/uL (150-450); RED BLOOD CELL COUNT(AUTO) 5.35 MIL/uL (4.0-5.2); WHITE BLOOD COUNT (AUTO) 17.2 K/uL (4.3-11.0)
[2022-04-13 06:40] LABS: CALCIUM, SERUM 9.3 mg/dL (8.5-10.1); CARBON DIOXIDE 29 mmol/L (21-32); CHLORIDE 100 mmol/L (98-107); CREATININE 0.9 mg/dL (0.6-1.3); GLUCOSE 161 mg/dL (74-106); POTASSIUM 3.8 mmol/L (3.5-5.1); SODIUM SERUM 138 mmol/L (136-145); UREA NITROGEN, BLOOD 32 mg/dL (7-18)
[2022-04-13] MEDS: HYDROMORPHONE INJ 2 MG/ML DISP.SYRIN IV PRN ×5 (07:58→22:55)
[2022-04-13 08:00] VITALS: BP 127/84
[2022-04-13] MEDS: ASPIRIN 81 MG TAB.CHEW PO SCH (09:00)
[2022-04-13] MEDS: METOPROLOL TARTRATE 25 MG TABLET PO SCH ×2 (09:00→20:27)
[2022-04-13 16:00] VITALS: BP 125/103
[2022-04-13 20:00] VITALS: BP 134/76
[2022-04-13] MEDS: LOSARTAN POTASSIUM 50 MG TABLET PO SCH (21:27)
[2022-04-13] MEDS ORDERED: LORAZEPAM INJ 2 MG/ML VIAL IV ONE (21:30)
[2022-04-14] VITALS (35 sets, daily range): BP systolic 48–180; BP diastolic 27–87
[2022-04-14] MEDS: HYDROMORPHONE INJ 2 MG/ML DISP.SYRIN IV PRN ×5 (02:26→23:31)
[2022-04-14] MEDS: IV NS 0.9% 1,000 ML IV SCH (03:16)
[2022-04-14 06:04] LABS: BASOPHILS % (AUTO) 0.1 % (0.0-2.0); EOSINOPHILS % (AUTO) 0.2 % (0.0-6.0); HEMATOCRIT 42 % (33-45); HEMOGLOBIN 13.9 g/dL (11.5-14.8); LYMPHOCYTES # (AUTO) 1.7 K/uL (0.8-4.8); MEAN CORPUSCULAR HGB CONC 33 g/dl (31.0-36.0); MEAN CORPUSCULAR VOLUME 91 fL (82-100); MONOCYTES # (AUTO) 1.1 K/uL (0.1-1.30); MONOCYTES % (AUTO) 8.7 % (2.0-12.0); NEUTROPHILS # (AUTO) 9.5 K/uL (1.8-8.9); PLATELET COUNT (AUTO) 221 K/uL (150-450); WHITE BLOOD COUNT (AUTO) 12.3 K/uL (4.3-11.0)
[2022-04-14 06:19] LABS: CALCIUM, SERUM 8.2 mg/dL (8.5-10.1); CARBON DIOXIDE 32 mmol/L (21-32); CHLORIDE 104 mmol/L (98-107); GLUCOSE 127 mg/dL (74-106); POTASSIUM 3.8 mmol/L (3.5-5.1); SODIUM SERUM 142 mmol/L (136-145); UREA NITROGEN, BLOOD 51 mg/dL (7-18)
[2022-04-14] MEDS: ONDANSETRON HCL/PF 4 MG/2 ML VIAL IVP PRN (08:13)
[2022-04-14] MEDS: hydrALAZINE HCL IV 20 MG VIAL IV PRN (08:58)
[2022-04-14] MEDS: ASPIRIN 81 MG TAB.CHEW PO SCH (09:00)
[2022-04-14] MEDS: METOPROLOL TARTRATE 25 MG TABLET PO SCH ×2 (09:00→21:00)
[2022-04-14] MEDS ORDERED: ANESTHESIA TRAY IN PYXIS 1 EA TRAY MC ONE ×2 (10:19→15:58)
[2022-04-14] MEDS ORDERED: LIDOCAINE HCL/MPF 1% 30 ML VIAL IJ ONE (10:19)
[2022-04-14] MEDS ORDERED: BUPIVACAINE MPF 0.5% W/EPI INJ 30 ML VIAL ONE (10:19)
[2022-04-14] MEDS ORDERED: HYDROMORPHONE INJ 2 MG/ML DISP.SYRIN ONE (11:11)
[2022-04-14] MEDS ORDERED: ROCURONIUM BROMIDE 50 MG/5 ML ONE (11:11)
[2022-04-14] MEDS ORDERED: CLINDAMYCIN IV RTU IN D5W 50 ML ONE (11:38)
[2022-04-14] MEDS ORDERED: METRONIDAZOLE 500MG/ NS 100ML 100 ML IV ONE (11:58)
[2022-04-14] MEDS: IV NS 0.9% 1,000 ML IV PRN (13:27)
[2022-04-14] MEDS: PROPOFOL 100 ML IV PRN ×3 (13:27→23:24)
[2022-04-14] MEDS: IPRATROPIUM NEB FS 0.5 MG/2.5 ML AMPUL.NEB NEB SCH ×2 (13:30→19:29)
[2022-04-14 14:16] LABS: ABG BASE EXCESS -0.4 mmol/L; ABG OXYGEN SATURATION 98.7 % (92.0-98.5); ABG PCO2 51.9 mmHg (35.0-45.0); ABG PH 7.324 (7.350-7.450); ABG PO2 153.5 mmHg (75.0-100.0); AaDO2 507.6 mmHg; COHb 1.2 % (0.5-1.5); MetHb 0.4 % (0.0-1.5); O2Hb 97.1 % (94.0-97.0); SITE, ABG Right Radial; VENT MODE, BG AC 12 500 +5 100
[2022-04-14] MEDS ORDERED: PHENYLEPHRINE 50 MG in IV NS 0.9% 245 ML IV PRN (18:00)
[2022-04-14] MEDS ORDERED: IV NS 0.9% 500 ML IV ONE (18:00)
[2022-04-14] MEDS: LOSARTAN POTASSIUM 50 MG TABLET PO SCH (21:20)
[2022-04-14] MEDS ORDERED: IV NS 0.9% 1,000 ML IV ONE (23:30)
[2022-04-15] VITALS (67 sets, daily range): BP systolic 89–173; BP diastolic 39–96
[2022-04-15] MEDS: HYDROMORPHONE INJ 2 MG/ML DISP.SYRIN IV PRN ×5 (02:56→19:56)
[2022-04-15] MEDS: PROPOFOL 100 ML IV PRN (04:36)
[2022-04-15] MEDS: IV NS 0.9% 1,000 ML IV PRN ×2 (04:37→17:35)
[2022-04-15] MEDS: IPRATROPIUM NEB FS 0.5 MG/2.5 ML AMPUL.NEB NEB SCH ×3 (07:35→19:41)
[2022-04-15 08:40] LABS: BASOPHILS % (AUTO) 0.3 % (0.0-2.0); EOSINOPHILS % (AUTO) 0.5 % (0.0-6.0); HEMATOCRIT 26 % (33-45); HEMOGLOBIN 8.5 g/dL (11.5-14.8); LYMPHOCYTES # (AUTO) 2.3 K/uL (0.8-4.8); LYMPHOCYTES % (AUTO) 19.5 % (20.0-44.0); MEAN CORPUSCULAR HGB CONC 33 g/dl (31.0-36.0); MEAN CORPUSCULAR VOLUME 92 fL (82-100); MONOCYTES # (AUTO) 1.3 K/uL (0.1-1.30); MONOCYTES % (AUTO) 10.5 % (2.0-12.0); NEUTROPHILS # (AUTO) 8.2 K/uL (1.8-8.9); NEUTROPHILS % (AUTO) 69.2 % (43.0-81.0); PLATELET COUNT (AUTO) 222 K/uL (150-450); RED BLOOD CELL COUNT(AUTO) 2.83 MIL/uL (4.0-5.2); WHITE BLOOD COUNT (AUTO) 11.9 K/uL (4.3-11.0)
[2022-04-15 08:53] LABS: CALCIUM, SERUM 6.1 mg/dL (8.5-10.1); CREATININE 0.7 mg/dL (0.6-1.3); MAGNESIUM 2.4 mg/dL (1.8-2.4); PHOSPHORUS 1.7 mg/dL (2.5-4.9)
[2022-04-15] MEDS: ASPIRIN 81 MG TAB.CHEW PO SCH (09:00)
[2022-04-15] MEDS: METOPROLOL TARTRATE 25 MG TABLET PO SCH ×2 (09:00→22:05)
[2022-04-15] MEDS ORDERED: DC PROPOFOL WHEN EXTUBATED XX PRN (10:00)
[2022-04-15] MEDS: ONDANSETRON HCL/PF 4 MG/2 ML VIAL IVP PRN ×3 (10:55→20:43)
[2022-04-15] MEDS: POTASSIUM CHLORIDE 10 MEQ/50 ML PREMIXED IVPB FOR PERIPHERAL LINE IV SCH ×5 (11:06→16:00)
[2022-04-15 11:07] LABS: ABG BASE EXCESS -2.7 mmol/L; ABG OXYGEN SATURATION 93.8 % (92.0-98.5); ABG PCO2 36.4 mmHg (35.0-45.0); ABG PH 7.394 (7.350-7.450); ABG PO2 70.1 mmHg (75.0-100.0); AaDO2 173.2 mmHg; COHb 0.1 % (0.5-1.5); O2Hb 93.7 % (94.0-97.0); PEEP,BG 5 cm H2O; SITE, ABG Left Brachial
[2022-04-15 12:11] LABS: BASOPHILS % (AUTO) 0.2 % (0.0-2.0); EOSINOPHILS % (AUTO) 0.5 % (0.0-6.0); HEMATOCRIT 28 % (33-45); HEMOGLOBIN 9.2 g/dL (11.5-14.8); LYMPHOCYTES # (AUTO) 2.2 K/uL (0.8-4.8); LYMPHOCYTES % (AUTO) 18.9 % (20.0-44.0); MEAN CORPUSCULAR HGB CONC 33 g/dl (31.0-36.0); MEAN CORPUSCULAR VOLUME 91 fL (82-100); MONOCYTES # (AUTO) 0.9 K/uL (0.1-1.30); NEUTROPHILS # (AUTO) 8.3 K/uL (1.8-8.9); NEUTROPHILS % (AUTO) 72.4 % (43.0-81.0); PLATELET COUNT (AUTO) 217 K/uL (150-450); RED BLOOD CELL COUNT(AUTO) 3.08 MIL/uL (4.0-5.2); WHITE BLOOD COUNT (AUTO) 11.4 K/uL (4.3-11.0)
[2022-04-15] MEDS: PANTOPRAZOLE 40 MG TABLET.DR PO SCH (15:05)
[2022-04-15] MEDS: CELECOXIB 100 MG CAPSULE PO SCH ×2 (15:05→22:05)
[2022-04-15] MEDS: ACETAMINOPHEN 325 MG TABLET PO SCH ×2 (15:05→22:04)
[2022-04-15] MEDS: GABAPENTIN 300 MG CAPSULE PO SCH ×2 (15:06→22:06)
[2022-04-15] MEDS ORDERED: Sodium Phosphate 15 MMOL in IV NS 0.9% 245 ML IV ONE (17:00)
[2022-04-15] MEDS: LOSARTAN POTASSIUM 50 MG TABLET PO SCH (22:06)
[2022-04-16] VITALS (16 sets, daily range): BP systolic 91–149; BP diastolic 51–89
[2022-04-16] MEDS: HYDROMORPHONE INJ 2 MG/ML DISP.SYRIN IV PRN ×5 (01:49→18:17)
[2022-04-16] MEDS: TEMAZEPAM 15 MG CAPSULE PO PRN ×2 (02:17→22:18)
[2022-04-16 04:55] LABS: BASOPHILS % (AUTO) 0.4 % (0.0-2.0); EOSINOPHILS % (AUTO) 2.6 % (0.0-6.0); HEMATOCRIT 22 % (33-45); HEMOGLOBIN 7.5 g/dL (11.5-14.8); LYMPHOCYTES # (AUTO) 1.2 K/uL (0.8-4.8); LYMPHOCYTES % (AUTO) 18.7 % (20.0-44.0); MEAN CORPUSCULAR HGB CONC 34 g/dl (31.0-36.0); MEAN CORPUSCULAR VOLUME 91 fL (82-100); MONOCYTES # (AUTO) 0.6 K/uL (0.1-1.30); MONOCYTES % (AUTO) 9.4 % (2.0-12.0); NEUTROPHILS # (AUTO) 4.4 K/uL (1.8-8.9); NEUTROPHILS % (AUTO) 68.9 % (43.0-81.0); PLATELET COUNT (AUTO) 165 K/uL (150-450); RED BLOOD CELL COUNT(AUTO) 2.46 MIL/uL (4.0-5.2); WHITE BLOOD COUNT (AUTO) 6.3 K/uL (4.3-11.0)
[2022-04-16 05:08] LABS: CALCIUM, SERUM 6.6 mg/dL (8.5-10.1); CARBON DIOXIDE 26 mmol/L (21-32); CHLORIDE 115 mmol/L (98-107); CREATININE 0.6 mg/dL (0.6-1.3); GLUCOSE 109 mg/dL (74-106); MAGNESIUM 2.6 mg/dL (1.8-2.4); PHOSPHORUS 1.9 mg/dL (2.5-4.9); POTASSIUM 3.5 mmol/L (3.5-5.1); SODIUM SERUM 146 mmol/L (136-145); UREA NITROGEN, BLOOD 30 mg/dL (7-18)
[2022-04-16] MEDS: ACETAMINOPHEN 325 MG TABLET PO SCH ×3 (05:09→22:00)
[2022-04-16] MEDS: GABAPENTIN 300 MG CAPSULE PO SCH ×3 (05:09→22:00)
[2022-04-16] MEDS: IV NS 0.9% 1,000 ML IV PRN (05:49)
[2022-04-16] MEDS: IPRATROPIUM NEB FS 0.5 MG/2.5 ML AMPUL.NEB NEB SCH ×3 (07:12→20:21)
[2022-04-16] MEDS: ASPIRIN 81 MG TAB.CHEW PO SCH (08:39)
[2022-04-16] MEDS: PANTOPRAZOLE 40 MG TABLET.DR PO SCH (08:39)
[2022-04-16] MEDS: CELECOXIB 100 MG CAPSULE PO SCH ×3 (08:40→22:00)
[2022-04-16] MEDS: METOPROLOL TARTRATE 25 MG TABLET PO SCH ×2 (08:40→22:01)
[2022-04-16] MEDS: ONDANSETRON HCL/PF 4 MG/2 ML VIAL IVP PRN ×2 (09:12→13:13)
[2022-04-16] MEDS: POTASSIUM PHOSPHATE MM 7.5 MMOL in IV NS 0.9% 100 ML IV SCH ×2 (09:52→13:02)
[2022-04-16 13:20] LABS: BASOPHILS % (AUTO) 0.4 % (0.0-2.0); EOSINOPHILS % (AUTO) 3.1 % (0.0-6.0); HEMATOCRIT 26 % (33-45); HEMOGLOBIN 8.6 g/dL (11.5-14.8); LYMPHOCYTES # (AUTO) 2.2 K/uL (0.8-4.8); LYMPHOCYTES % (AUTO) 23.7 % (20.0-44.0); MEAN CORPUSCULAR HGB CONC 33 g/dl (31.0-36.0); MEAN CORPUSCULAR VOLUME 91 fL (82-100); MONOCYTES # (AUTO) 0.8 K/uL (0.1-1.30); MONOCYTES % (AUTO) 8.8 % (2.0-12.0); NEUTROPHILS # (AUTO) 6.1 K/uL (1.8-8.9); PLATELET COUNT (AUTO) 197 K/uL (150-450); RED BLOOD CELL COUNT(AUTO) 2.88 MIL/uL (4.0-5.2); WHITE BLOOD COUNT (AUTO) 9.5 K/uL (4.3-11.0)
[2022-04-16 18:50] LABS: OCCULT BLOOD STOOL NEGATIVE (NEGATIVE)
[2022-04-16] MEDS: LOSARTAN POTASSIUM 50 MG TABLET PO SCH (22:00)
[2022-04-17] VITALS: BP 126/73
[2022-04-17 04:00] VITALS: BP 132/80
[2022-04-17] MEDS: IV NS 0.9% 1,000 ML IV PRN (04:04)
[2022-04-17] MEDS: ACETAMINOPHEN 325 MG TABLET PO SCH ×4 (04:25→21:17)
[2022-04-17] MEDS: GABAPENTIN 300 MG CAPSULE PO SCH ×3 (04:25→21:21)
[2022-04-17] MEDS: HYDROMORPHONE INJ 2 MG/ML DISP.SYRIN IV PRN ×5 (04:31→21:21)
[2022-04-17] MEDS: IPRATROPIUM NEB FS 0.5 MG/2.5 ML AMPUL.NEB NEB SCH ×3 (07:35→19:30)
[2022-04-17 08:00] VITALS: BP_SYST 123; BP_SYST 150; BP_DIAS 69; BP_DIAS 77
[2022-04-17] MEDS: PANTOPRAZOLE 40 MG TABLET.DR PO SCH (08:22)
[2022-04-17] MEDS: ASPIRIN 81 MG TAB.CHEW PO SCH (08:22)
[2022-04-17] MEDS: METOPROLOL TARTRATE 25 MG TABLET PO SCH ×2 (08:22→21:21)
[2022-04-17] MEDS ORDERED: MAGNESIUM OXIDE 400 MG TABLET PO ONE (09:30)
[2022-04-17] MEDS ORDERED: FUROSEMIDE 20 MG/2 ML VIAL IV ONE (09:30)
[2022-04-17] MEDS: CELECOXIB 100 MG CAPSULE PO SCH ×3 (09:34→21:16)
[2022-04-17] MEDS ORDERED: IV NS 0.9% 500 ML IV ONE (10:30)
[2022-04-17] MEDS: POTASSIUM PHOSPHATE MM 7.5 MMOL in IV NS 0.9% 100 ML IV SCH ×2 (11:00→15:52)
[2022-04-17 12:00] VITALS: BP 143/71
[2022-04-17] MEDS: ONDANSETRON HCL/PF 4 MG/2 ML VIAL IVP PRN (12:57)
[2022-04-17 16:00] VITALS: BP 157/94
[2022-04-17 20:00] VITALS: BP 165/77
[2022-04-17] MEDS: LOSARTAN POTASSIUM 50 MG TABLET PO SCH (21:20)
[2022-04-17] MEDS: TEMAZEPAM 15 MG CAPSULE PO PRN (22:07)
[2022-04-18] VITALS: BP 144/72
[2022-04-18 04:00] VITALS: BP 132/75
[2022-04-18] MEDS: GABAPENTIN 300 MG CAPSULE PO SCH ×3 (04:32→21:10)
[2022-04-18] MEDS: HYDROMORPHONE INJ 2 MG/ML DISP.SYRIN IV PRN (04:37)
[2022-04-18] MEDS: ACETAMINOPHEN 325 MG TABLET PO SCH ×3 (05:00→21:09)
[2022-04-18 06:01] LABS: BASOPHILS % (AUTO) 0.4 % (0.0-2.0); EOSINOPHILS % (AUTO) 3.5 % (0.0-6.0); HEMATOCRIT 27 % (33-45); LYMPHOCYTES # (AUTO) 2.2 K/uL (0.8-4.8); LYMPHOCYTES % (AUTO) 27.9 % (20.0-44.0); MEAN CORPUSCULAR HGB CONC 34 g/dl (31.0-36.0); MEAN CORPUSCULAR VOLUME 91 fL (82-100); MONOCYTES # (AUTO) 0.6 K/uL (0.1-1.30); MONOCYTES % (AUTO) 8.3 % (2.0-12.0); NEUTROPHILS # (AUTO) 4.6 K/uL (1.8-8.9); NEUTROPHILS % (AUTO) 59.9 % (43.0-81.0); PLATELET COUNT (AUTO) 206 K/uL (150-450); RED BLOOD CELL COUNT(AUTO) 2.95 MIL/uL (4.0-5.2); WHITE BLOOD COUNT (AUTO) 7.7 K/uL (4.3-11.0)
[2022-04-18 06:20] LABS: CALCIUM, SERUM 7.2 mg/dL (8.5-10.1); CARBON DIOXIDE 32 mmol/L (21-32); CHLORIDE 104 mmol/L (98-107); CREATININE 0.5 mg/dL (0.6-1.3); GLUCOSE 136 mg/dL (74-106); MAGNESIUM 2.2 mg/dL (1.8-2.4); PHOSPHORUS 2.5 mg/dL (2.5-4.9); POTASSIUM 3.1 mmol/L (3.5-5.1); SODIUM SERUM 141 mmol/L (136-145); UREA NITROGEN, BLOOD 15 mg/dL (7-18)
[2022-04-18] MEDS: ONDANSETRON HCL/PF 4 MG/2 ML VIAL IVP PRN ×3 (06:28→22:49)
[2022-04-18 06:30] LABS: BILIRUBIN,URINE NEGATIVE (NEGATIVE); COLOR,URINE YELLOW (YELLOW); LEUKOCYTE ESTERASE ,URINE NEGATIVE (NEGATIVE); NITRITE, URINE NEGATIVE (NEGATIVE); PROTEIN,URINE TRACE mg/dl (NEGATIVE); UGLUCOSE NEGATIVE (NEGATIVE)
[2022-04-18] MEDS: IPRATROPIUM NEB FS 0.5 MG/2.5 ML AMPUL.NEB NEB SCH ×3 (07:35→19:30)
[2022-04-18 07:52] LABS: BACTERIA,URINE Rare /HPF (None Seen); RBC,URINE TOO NUMEROUS TO COUN /HPF (0-2); SQUAMOUS EPITHELIAL CELL,UR Few /HPF (None Seen)
[2022-04-18] MEDS: ASPIRIN 81 MG TAB.CHEW PO SCH (08:17)
[2022-04-18] MEDS: PANTOPRAZOLE 40 MG TABLET.DR PO SCH (08:17)
[2022-04-18] MEDS: CELECOXIB 100 MG CAPSULE PO SCH ×2 (08:18→21:08)
[2022-04-18] MEDS: METOPROLOL TARTRATE 25 MG TABLET PO SCH ×2 (08:24→21:10)
[2022-04-18] MEDS ORDERED: POTASSIUM CHLORIDE 20 MEQ TAB.PRT.SR PO ONE (09:00)
[2022-04-18] MEDS ORDERED: GABA300C PO (09:26)
[2022-04-18] MEDS ORDERED: OXYC5CAP18 PO (09:26)
[2022-04-18] MEDS ORDERED: PANT40TA49 PO (09:26)
[2022-04-18] MEDS ORDERED: HYDROMORPHONE 1 MG/1 ML DISP.SYRIN IV PRN (09:30)
[2022-04-18] MEDS: oxyCODONE IR immediate release 5 MG PO PRN ×3 (11:03→21:12)
[2022-04-18 12:21] VITALS: BP 174/80
[2022-04-18 16:00] VITALS: BP 161/81
[2022-04-18 20:00] VITALS: BP 156/67
[2022-04-18] MEDS: LOSARTAN POTASSIUM 50 MG TABLET PO SCH (21:10)
[2022-04-19] VITALS: BP 160/80
[2022-04-19] MEDS: TEMAZEPAM 15 MG CAPSULE PO PRN (00:04)
[2022-04-19 04:00] VITALS: BP 161/82
[2022-04-19] MEDS: GABAPENTIN 300 MG CAPSULE PO SCH ×2 (06:12→14:01)
[2022-04-19] MEDS: ACETAMINOPHEN 325 MG TABLET PO SCH ×2 (06:12→14:01)
[2022-04-19] MEDS: IPRATROPIUM NEB FS 0.5 MG/2.5 ML AMPUL.NEB NEB SCH ×3 (07:35→19:30)
[2022-04-19 08:00] VITALS: BP 144/71
[2022-04-19 08:18] LABS: BASOPHILS % (AUTO) 0.5 % (0.0-2.0); HEMATOCRIT 30 % (33-45); HEMOGLOBIN 9.9 g/dL (11.5-14.8); LYMPHOCYTES # (AUTO) 1.7 K/uL (0.8-4.8); LYMPHOCYTES % (AUTO) 20.5 % (20.0-44.0); MEAN CORPUSCULAR HGB CONC 33 g/dl (31.0-36.0); MEAN CORPUSCULAR VOLUME 92 fL (82-100); MONOCYTES # (AUTO) 0.8 K/uL (0.1-1.30); MONOCYTES % (AUTO) 9.4 % (2.0-12.0); NEUTROPHILS # (AUTO) 5.5 K/uL (1.8-8.9); NEUTROPHILS % (AUTO) 66.6 % (43.0-81.0); PLATELET COUNT (AUTO) 220 K/uL (150-450); RED BLOOD CELL COUNT(AUTO) 3.24 MIL/uL (4.0-5.2); WHITE BLOOD COUNT (AUTO) 8.3 K/uL (4.3-11.0)
[2022-04-19 09:06] LABS: CALCIUM, SERUM 7.8 mg/dL (8.5-10.1); CREATININE 0.7 mg/dL (0.6-1.3); POTASSIUM 3.5 mmol/L (3.5-5.1)
[2022-04-19] MEDS: CELECOXIB 100 MG CAPSULE PO SCH (09:10)
[2022-04-19] MEDS: ASPIRIN 81 MG TAB.CHEW PO SCH (09:10)
[2022-04-19] MEDS: PANTOPRAZOLE 40 MG TABLET.DR PO SCH (09:10)
[2022-04-19] MEDS: METOPROLOL TARTRATE 25 MG TABLET PO SCH (09:10)
[2022-04-19] MEDS: oxyCODONE IR immediate release 5 MG PO PRN ×3 (09:11→19:39)
[2022-04-19] MEDS ORDERED: POTASSIUM CHLORIDE 20 MEQ TAB.PRT.SR PO ONE (10:00)
[2022-04-19 12:00] VITALS: BP 154/92
[2022-04-19] MEDS ORDERED: MUPIROCIN OINT 2% 22 GM TUBE TP SCH (13:30)
[2022-04-19 16:00] VITALS: BP 175/102
[2022-04-19] MEDS: hydrALAZINE HCL IV 20 MG VIAL IV PRN (16:08)
[2022-04-19] MEDS: ONDANSETRON HCL/PF 4 MG/2 ML VIAL IVP PRN (17:29)
[2022-04-19] MEDS ORDERED: CLONIDINE HCL 0.1 MG TABLET PO ONE (19:00)
[2022-04-19 20:00] VITALS: BP 145/97
== END 2022-04-19 20:10 | disposition home health service (06) | DRG 335 ==
LOC: ER 17:01 → MED 20:26 → ICU 04-14 12:56 → TELE1 04-16 13:36
PROVIDERS: ADMIT Nurse Practitioner Acute Care; ATTEND Internal Medicine
PROC: 0DN84ZZ Release Small Intestine, Percutaneous Endoscopic Approach (ICD-10-PCS; principal; 2022-04-14)
PROC: 05H533Z Insertion of Infusion Device into Right Subclavian Vein, Percutaneous Approach (ICD-10-PCS; 2022-04-15)
PROC: B546ZZA Ultrasonography of Right Subclavian Vein, Guidance (ICD-10-PCS; 2022-04-15)
DX: K56.51 Intestinal adhesions [bands], with partial obstruction (principal); J96.91 Respiratory failure, unspecified with hypoxia; E87.20 Acidosis, unspecified; J98.11 Atelectasis; J90 Pleural effusion, not elsewhere classified; K21.9 Gastro-esophageal reflux disease without esophagitis; I25.10 Atherosclerotic heart disease of native coronary artery without angina pectoris; D64.9 Anemia, unspecified; E78.5 Hyperlipidemia, unspecified; E87.6 Hypokalemia; G89.4 Chronic pain syndrome; I10 Essential (primary) hypertension; M06.9 Rheumatoid arthritis, unspecified; Z86.73 Personal history of transient ischemic attack (TIA), and cerebral infarction without residual deficits; Z87.891 Personal history of nicotine dependence; J44.9 Chronic obstructive pulmonary disease, unspecified; M54.30 Sciatica, unspecified side; K80.20 Calculus of gallbladder without cholecystitis without obstruction; E83.39 Other disorders of phosphorus metabolism; E83.42 Hypomagnesemia; M19.90 Unspecified osteoarthritis, unspecified site; Z20.822 Contact with and (suspected) exposure to COVID-19
CPT/HCPCS: 31720; 36410; 36415; 36600; 71045-TC; 74018; 74250-TC; 76700-TC; 80048-TC; 80076-TC; 81001; 82272-TC; 82962-TC; 83605-TC; 83690-TC; 83735-TC; 84100-TC; 85025-TC; 85610-TC; 85730-TC; 86850-TC; 87081-TC; 94003-TC; 94760-TC; 94799-TC; 97112-TC; 97116-TC; 97530-TC; A9563; C9803; G0378; J0330; J0360; J1100; J1170; J1885; J1940; J2060; J2270; J2370; J2405; J2704; J3480; J3490; J7030; J7040; J7050; Q9963